=== PATIENT | male | born 1935 | race Caucasian/White ===

== ENCOUNTER 2017-06-01 15:31 | Inpatient (IN) | payer MEDICARE, OTHER ==
[2017-06-01 21:02] VITALS: BMI 23.8
--- NOTE | 2017-06-01 21:43 | CP.PCM.HP ---
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 Mostly obtained from chart. HPI: This is an 81 y/o male with MHx significant for HTN, HLD, and recent CVA with resulting aphasia and R sided weakness who comes in for rehab from [facility] [place]. Patient does not appear to indicate any acute discomfort at this time. Patient info packet did not contain any imaging information. ROS: unable to perform due to aphasia MHx: HTN, HLD, CVA SHx: unable to obtain Allergies: NKDA Medications: As per med rec Family Hx: unable to obtain Social Hx: unable to obtain at this time Surrogate dec mkr: pending Present on Admission - Present on Admission Any Indicators Present on Admission: No Meds Allergies/Adverse Reactions: Allergies Allergy/AdvReac Type Severity Reaction Status Date / Time No Known Allergies Allergy Verified 06/01/17 21:02 Physical Exam - Constitutional Appears: No Acute Distress - Head Exam Head Exam: ATRAUMATIC, NORMOCEPHALIC - Eye Exam Eye Exam: EOMI, PERRL - ENT Exam ENT Exam: Mucous Membranes Moist - Neck Exam Neck exam: Positive for: Full Rom - Respiratory Exam Respiratory Exam: Clear to Auscultation Bilateral, NORMAL BREATHING PATTERN - Cardiovascular Exam Cardiovascular Exam: REGULAR RHYTHM, +S1, +S2 - GI/Abdominal Exam GI & Abdominal Exam: Normal Bowel Sounds, Soft - Extremities Exam Additional comments: Patient with 0/5 strength currently in RUE and RLE - Neurological Exam Additional comments: awake, alert, not able to answer questions or comply with exam; R sided weakness as above - Psychiatric Exam Psychiatric exam: Normal Affect - Skin Skin Exam: Petechiae, Warm Assessment & Plan (1) Status post CVA Assessment and Plan: 81 y/o male with HTN, HLD, and s/p L sided CVA here for rehab. 1) CVA/HTN/HLD -Contine ASA, Plavix, statin -Cont BP control -PT/OT; rehab consult -Neuro consult (Patel) 2) DVT PPx -- SQ Lovenox Status: Acute (2) HTN (hypertension) Status: Acute (3) HLD (hyperlipidemia) Status: Acute (4) DVT prophylaxis Status: Acute
[2017-06-02 06:49] LABS: MEAN CELL VOLUME 92.1 fl (80.0-94.0); MEAN CORPUSCULAR HEMOGLOBIN 31.5 pg (27.0-31.0); MEAN CORPUSCULAR HGB CONC 34.2 g/dL (33.0-37.0); RED CELL DISTRIBUTION WIDTH 13.2 % (11.5-14.5)
[2017-06-02 07:00] LABS: BLOOD UREA NITROGEN 33 mg/dl (9-20); CALCIUM 9.1 mg/dL (8.4-10.2); CARBON DIOXIDE 20 mmol/L (22-30); CHLORIDE 107 mmol/L (98-107); GFR AFRICAN-AMERICAN > 60; GLUCOSE,RANDOM 103 mg/dL (75-110); SODIUM 141 mmol/l (132-148)
[2017-06-02 09:53] LABS: RBC URINE 3 /hpf (0-3); URINE BILIRUBIN NEGATIVE (NEGATIVE); URINE BLOOD NEGATIVE (NEGATIVE); URINE COLOR YELLOW (YELLOW); URINE GLUCOSE (UA) NEG (Normal); URINE KETONE 20 mg/dL (NEGATIVE); URINE LEUKOCYTE ESTERASE NEG Leu/uL (Negative); URINE PROTEIN 30 mg/dL (NEGATIVE); URINE UROBILINOGEN 0.2-1.0 mg/dL (0.2-1.0); WBC URINE 1 /hpf (0-5)
--- NOTE | 2017-06-02 12:05 | CP.PCM.PN ---
Subjective - Date & Time of Evaluation Date of Evaluation: 06/02/17 Time of Evaluation: 12:04 - Subjective Subjective: left CVA right HP Objective - Vital Signs/Intake and Output Vital Signs (last 24 hours): Temp Pulse Resp BP Pulse Ox 98.3 F 90 19 146/79 97 06/02/17 08:39 06/02/17 08:39 06/02/17 08:39 06/02/17 08:39 06/02/17 08:39 - Medications Medications: Current Medications Amlodipine Besylate (Norvasc) 5 mg PO DAILY [facility] Last Admin: 06/02/17 08:36 Dose: 5 mg Aspirin (Aspirin) 325 mg PO DAILY [facility] Last Admin: 06/02/17 08:39 Dose: 325 mg Atorvastatin Calcium (Lipitor) 80 mg PO DAILY [facility] Clopidogrel Bisulfate (Plavix) 75 mg PO DAILY [facility] Last Admin: 06/02/17 08:36 Dose: 75 mg Docusate Sodium (Colace) 100 mg PO BID [facility] Last Admin: 06/02/17 08:37 Dose: 100 mg Donepezil HCl (Aricept) 5 mg PO HS [facility] Last Admin: 06/01/17 23:01 Dose: 5 mg Enoxaparin Sodium (Lovenox) 40 mg SC DAILY [facility] PRN Reason: Protocol Sennosides (Senokot Tab) 8.6 mg PO [facility] - Labs Labs: 06/02/17 05:45 06/02/17 05:45 Physiatry Overall Plan of Care - Overall Plan of Care Estimated Length of Stay in Weeks: 3 Rehab Impairment: Mobility, Gait, Cognition, Speech, Balance, Coordination Etiologic Diagnosis: Cerebrovascular Accident Rehab/Medical Prognosis: Guarded - Anticipated Interventions Physical Therapy:: Yes Occupational Therapy:: Yes Speech Therapy:: Yes Recreational Therapy:: Yes - Therapy Goals Bed Mobility: Minimal Assistance Ambulation: Minimal Assistance Functional Positional Changes:: Minimal Assistance - Discharge Plan Discharge Destination: Subacute
--- NOTE | 2017-06-02 12:07 | CP.PCM.CON ---
History of Present Illness - History of Present Illness History of Present Illness: Dr Gay Coverage for Dr Cee PMR consultation on Lowell Suazo, born 1935, who has been admitted to [facility] for acute inpatient rehabilitation following a left CVA with right HP and aphasia (global). Review of Systems - Review of Systems Systems not reviewed;Unavailable: Other (aphasia) Past Patient History - Past Social History Smoking Status: Never Smoked - CARDIAC Hx Hypertension: Yes - NEUROLOGICAL HX Cerebrovascular Accident: Yes - HEENT Other/Comment: patient wears eyeglasses. - HEMATOLOGICAL/ONCOLOGICAL Hx AIDS: No Hx Blood Transfusions: No Hx Human Immunodeficiency Virus (HIV): No - MUSCULOSKELETAL/RHEUMATOLOGICAL Hx Falls: No Hx Unsteady Gait: Yes - GASTROINTESTINAL Hx Constipation: Yes - GENITOURINARY/GYNECOLOGICAL Hx Incontinence: Yes - PSYCHIATRIC Hx Substance Use: No - ANESTHESIA Hx Anesthesia: No Hx Anesthesia Reactions: No Hx Malignant Hyperthermia: No Has any member of the family had a problem w/ anesthesia?: No Meds Allergies/Adverse Reactions: Allergies Allergy/AdvReac Type Severity Reaction Status Date / Time No Known Allergies Allergy Verified 06/01/17 21:02 - Medications Medications: Current Medications Amlodipine Besylate (Norvasc) 5 mg PO DAILY [facility] Last Admin: 06/02/17 08:36 Dose: 5 mg Aspirin (Aspirin) 325 mg PO DAILY [facility] Last Admin: 06/02/17 08:39 Dose: 325 mg Atorvastatin Calcium (Lipitor) 80 mg PO DAILY [facility] Clopidogrel Bisulfate (Plavix) 75 mg PO DAILY [facility] Last Admin: 06/02/17 08:36 Dose: 75 mg Docusate Sodium (Colace) 100 mg PO BID [facility] Last Admin: 06/02/17 08:37 Dose: 100 mg Donepezil HCl (Aricept) 5 mg PO HS [facility] Last Admin: 06/01/17 23:01 Dose: 5 mg Enoxaparin Sodium (Lovenox) 40 mg SC DAILY [facility] PRN Reason: Protocol Sennosides (Senokot Tab) 8.6 mg PO [facility] Physical Exam - Constitutional Appears: Non-toxic - Head Exam Head Exam: ATRAUMATIC, NORMAL INSPECTION, NORMOCEPHALIC - Eye Exam Eye Exam: EOMI - ENT Exam ENT Exam: Mucous Membranes Moist - Respiratory Exam Respiratory Exam: NORMAL BREATHING PATTERN - Cardiovascular Exam Cardiovascular Exam: REGULAR RHYTHM (2/6 KERWIN) - GI/Abdominal Exam GI & Abdominal Exam: absent: Distended - Extremities Exam Extremities exam: Negative for: calf tenderness, joint swelling - Neurological Exam Neurological exam: Alert (right facial droop) - Psychiatric Exam Psychiatric exam: Normal Affect - Skin Skin Exam: Warm Results - Vital Signs Recent Vital Signs: Last Vital Signs Temp 98.3 F 06/02/17 08:39 Pulse 90 06/02/17 08:39 Resp 19 06/02/17 08:39 BP 146/79 06/02/17 08:39 Pulse Ox 97 06/02/17 08:39 - Labs Result Diagrams: 06/02/17 05:45 06/02/17 05:45 Labs: Laboratory Results - last 24 hr 06/02/17 06/02/17 06/02/17 05:45 05:45 09:10 WBC 8.0 RBC 4.66 Hgb 14.7 Hct 43.0 MCV 92.1 MCH 31.5 H MCHC 34.2 RDW 13.2 Plt Count 251 Sodium 141 Potassium 4.0 Chloride 107 Carbon Dioxide 20 L Anion Gap 18 BUN 33 H Creatinine 0.9 Est GFR ( Amer) > 60 Est GFR (Non-Af Amer) > 60 Random Glucose 103 Calcium 9.1 Urine Color Yellow Urine Clarity Slighty-cloudy Urine pH 5.0 Ur Specific [place] 1.027 Urine Protein 30 Urine Glucose (UA) Neg Urine Ketones 20 Urine Blood Negative Urine Nitrate Negative Urine Bilirubin Negative Urine Urobilinogen 0.2-1.0 Ur Leukocyte Esterase Neg Urine RBC (Auto) 3 Urine Microscopic WBC 1 Ur Squamous Epith Cells < 1 Assessment & Plan - Assessment and Plan (Free Text) Assessment: PT/OT to continue to help increase functional independence Team conference for d/c planning Pain: controlled Vascular: no evidence of DVT GI: No evidence of constipation or diarrhea Patient is an excellent acute rehabilitation candidate and will have focused speech, PT, OT and recreational therapy to help facilitate a safe and appropriate d/c plan Has 2/5 proximal right UE strength and right LE was not easily tested with MMT, tight hamstring, not clear on motor ability at this time. Left UE/LE WNL Impairment code 01.2
[2017-06-02] MEDS: Enoxaparin 40 mg Syringe SC SCH (13:58)
[2017-06-03] MEDS: Enoxaparin 40 mg Syringe SC SCH (09:03)
[2017-06-03] MEDS: Pantoprazole 40 mg EC Tab PO SCH (09:04)
--- NOTE | 2017-06-04 06:00 | CON ---
DATE: 06/03/2017 NEUROLOGY CONSULTATION REASON FOR CONSULTATION: Stroke. HISTORY OF PRESENT ILLNESS: The patient is an 81-year-old male who is admitted into rehab service after he was diagnosed with cerebrovascular accident with aphasia and right-sided weakness. The patient was admitted in [facility]; however, he was out of time window for tPA administration. The patient had full workup done, which was negative. The patient was diagnosed to have a cryptogenic stroke. The patient had insertable loop recorder procedure done. The patient denies any complaints. REVIEW OF SYSTEMS: There is no cough, no sputum production, no abdominal pain, no diarrhea, no dysuria and no fever. PAST MEDICAL HISTORY: Includes hypertension, cerebrovascular accident and hypercholesterolemia. MEDICATIONS: Included Aricept 5 mg, aspirin, Colace, , Lipitor 80 mg, Lovenox, Norvasc, Plavix, Protonix and Senokot. ALLERGIES: NO KNOWN DRUG ALLERGIES. SOCIAL HISTORY: The patient is a nonsmoker, nonalcoholic, and does not use any illicit drugs. FAMILY HISTORY: Reviewed and noncontributory to the patient. PHYSICAL EXAMINATION: GENERAL: The patient is an elderly male, lying on the bed, in no acute distress. VITAL SIGNS: His blood pressure is 153/74, heart rate is 72 per minute, breathing at the rate of 16 per minute, temperature 98.0 degrees Fahrenheit. HEENT: Head is normocephalic and atraumatic. NECK: Supple. There are no carotid bruits. LUNGS: Clear. CARDIOVASCULAR: S1 and S2 audible. No murmurs. ABDOMEN: Soft and nontender. Bowel sounds present. NEUROLOGIC: Mental status: The patient is awake and alert, he looks at the examiner, he follows some simple commands. He has mixed aphasia. Cranial nerve examination: Pupils are 3 mm bilaterally, reactive to light. Visual fallon are decreased on the right side. Extraocular movements are intact. There is decreased nasolabial fold on the right side. Tongue is midline. Motor examination: Tone is decreased on the right side. Power on the left side is 5/5, on the right side in the upper extremity is 3/5, and the right lower extremity is 4/5. Reflexes are 1+ and symmetrical. downgoing bilaterally. Gait is deferred at the moment. LABORATORY DATA: Reviewed, shows WBC 8.0, hemoglobin 14.7, hematocrit of 43.0 and platelets of 251. Sodium is 141, potassium 4.0, chloride 107, carbon dioxide 20, BUN of 33, creatinine of 0.9 and glucose of 103. IMPRESSION: Cerebrovascular accident with residual right hemiparesis and aphasia. Status post insertable loop recorder procedure done. RECOMMENDATIONS: 1. The patient is to be continued on aspirin. 2. The patient also will be continued on Lipitor. 3. The patient also will be continued on Plavix. 4. The patient is to be continued on Aricept, which will help his aphasic symptoms. 5. The patient will have physical therapy and speech therapy. 6. Please continue supportive care and other treatment. Thank you for the opportunity to participate in the care of this patient. Anjum Sweeney MD
[2017-06-04] MEDS: Enoxaparin 40 mg Syringe SC SCH (08:05)
[2017-06-04] MEDS: Pantoprazole 40 mg EC Tab PO SCH (08:06)
--- NOTE | 2017-06-04 10:11 | CP.PCM.PN ---
Subjective - Date & Time of Evaluation Date of Evaluation: 06/04/17 Time of Evaluation: 10:00 - Subjective Subjective: Patient seen and examined by myself in acute rehabilitation. He is aphasic and unable to give a history. Rehabiliation staff report that he has been able to ambulate well and walked down the truong with assistance. Overnight, he had to be straight catheterized twice, last time with output of 448 ml. He has had some difficulty eating over the weekend; speech therapy evaluation with swallow eval today Objective - Vital Signs/Intake and Output Vital Signs (last 24 hours): Temp Pulse Resp BP Pulse Ox 96.4 F L 65 20 128/74 98 06/04/17 07:48 06/04/17 08:06 06/04/17 07:48 06/04/17 08:06 06/04/17 07:48 - Medications Medications: Current Medications Amlodipine Besylate (Norvasc) 5 mg PO DAILY [facility] Last Admin: 06/04/17 08:06 Dose: 5 mg Aspirin (Aspirin) 325 mg PO DAILY [facility] Last Admin: 06/04/17 08:07 Dose: 325 mg Atorvastatin Calcium (Lipitor) 80 mg PO DAILY [facility] Last Admin: 06/04/17 08:05 Dose: 80 mg Clopidogrel Bisulfate (Plavix) 75 mg PO DAILY [facility] Last Admin: 06/04/17 08:06 Dose: 75 mg Docusate Sodium (Colace) 100 mg PO BID [facility] Last Admin: 06/04/17 08:05 Dose: 100 mg Donepezil HCl (Aricept) 5 mg PO HS [facility] Last Admin: 06/03/17 21:48 Dose: 5 mg Enoxaparin Sodium (Lovenox) 40 mg SC DAILY [facility] PRN Reason: Protocol Last Admin: 06/04/17 08:05 Dose: 40 mg Lactulose (Enulose) 20 gm PO DAILY PRN PRN Reason: Constipation Last Admin: 06/03/17 09:14 Dose: 20 gm Pantoprazole Sodium (Protonix Ec Tab) 40 mg PO DAILY [facility] Last Admin: 06/04/17 08:06 Dose: 40 mg Sennosides (Senokot Tab) 8.6 mg PO HS [facility] Last Admin: 06/03/17 21:48 Dose: 8.6 mg - Labs Labs: 06/02/17 05:45 06/02/17 05:45 - Head Exam Head Exam: ATRAUMATIC, NORMAL INSPECTION, NORMOCEPHALIC - ENT Exam ENT Exam: Mucous Membranes Moist, Normal Exam. absent: Mucous Membranes Dry - Neck Exam Neck Exam: Full ROM, Normal Inspection. absent: Lymphadenopathy - Respiratory Exam Respiratory Exam: Clear to Ausculation Bilateral, NORMAL BREATHING PATTERN - Cardiovascular Exam Cardiovascular Exam: REGULAR RHYTHM, +S1, +S2. absent: Murmur - GI/Abdominal Exam GI & Abdominal Exam: Soft, Normal Bowel Sounds. absent: Tenderness - Extremities Exam Extremities Exam: Full ROM, Normal Capillary Refill, Normal Inspection. absent : Joint Swelling, Pedal Edema - Back Exam Back Exam: NORMAL INSPECTION - Neurological Exam Neurological Exam: Alert, Awake, CN II-XII Intact Neuro motor strength exam: Left Upper Extremity: 5, Right Upper Extremity: 0, Left Lower Extremity: 5, Right Lower Extremity: 5 - Skin Skin Exam: Dry, Intact, Normal Color, Warm Assessment and Plan (1) Status post CVA Status: Acute (2) HTN (hypertension) Status: Chronic (3) HLD (hyperlipidemia) Status: Chronic (4) Urinary retention with incomplete bladder emptying Status: Acute (5) DVT prophylaxis Status: Acute - Assessment and Plan (Free Text) Assessment: Assessment & Plan (1) Status post CVA Assessment and Plan: 81 y/o male with HTN, HLD, and s/p L sided CVA here for rehab from [facility]. -Contine ASA, Plavix, statin -Cont BP control -PT/OT; rehab consult -Neuro consult (Patel) Status: Acute (2) HTN (hypertension) Status: Acute - Continue Norvasc 5 mg po daily (3) HLD (hyperlipidemia) Status: Acute - Continue Lipitor 80 mg po daily (4) DVT prophylaxis Status: Acute - Continue Lovenox SQ (5) Constipation - Continue Colace 100 mg po BID - Continue Sennosides (6) Dysphagia - Speech therapy consultation - Swallow evaluation today by speech therapist ordered (7) Urinary retention overnight - Repeat bladder scan; straight cath if necessary - Urology consultation if no improvement
[2017-06-04] MEDS: Sodium Chloride 0.9% 500 ML IV SCH ×2 (15:26→21:10)
[2017-06-05] MEDS ORDERED: Sodium Chloride 0.9% 500 ML IV SCH (01:40)
[2017-06-05] MEDS: Sodium Chloride 0.9% 500 ML IV SCH (01:52)
[2017-06-05 06:53] LABS: HEMATOCRIT 38.5 % (35.0-51.0); MEAN CELL VOLUME 92.5 fl (80.0-94.0); MEAN CORPUSCULAR HEMOGLOBIN 31.8 pg (27.0-31.0); MEAN CORPUSCULAR HGB CONC 34.4 g/dL (33.0-37.0); RED CELL DISTRIBUTION WIDTH 13.3 % (11.5-14.5); WHITE BLOOD COUNT 10.3 K/uL (4.8-10.8)
[2017-06-05] MEDS: Enoxaparin 40 mg Syringe SC SCH (09:03)
[2017-06-05] MEDS: Pantoprazole 40 mg EC Tab PO SCH (09:04)
--- NOTE | 2017-06-05 11:56 | CP.PCM.PN ---
Subjective - Date & Time of Evaluation Date of Evaluation: 06/05/17 Time of Evaluation: 10:00 - Subjective Subjective: no acute complaints [id number] in bed Objective - Vital Signs/Intake and Output Vital Signs (last 24 hours): Temp Pulse Resp BP Pulse Ox 97.8 F 78 21 124/76 97 06/05/17 08:25 06/05/17 09:03 06/05/17 08:25 06/05/17 09:03 06/05/17 08:39 Intake and Output: 06/05/17 06/05/17 06:59 18:59 Intake Total 800 150 Output Total 550 Balance 250 150 - Medications Medications: Current Medications Amlodipine Besylate (Norvasc) 5 mg PO DAILY [facility] Last Admin: 06/05/17 09:03 Dose: 5 mg Aspirin (Aspirin) 325 mg PO DAILY [facility] Last Admin: 06/05/17 09:05 Dose: 325 mg Atorvastatin Calcium (Lipitor) 80 mg PO DAILY [facility] Last Admin: 06/05/17 09:03 Dose: 80 mg Clopidogrel Bisulfate (Plavix) 75 mg PO DAILY [facility] Last Admin: 06/05/17 09:03 Dose: 75 mg Docusate Sodium (Colace) 100 mg PO BID [facility] Last Admin: 06/05/17 09:02 Dose: 100 mg Donepezil HCl (Aricept) 5 mg PO HS [facility] Last Admin: 06/04/17 21:09 Dose: 5 mg Enoxaparin Sodium (Lovenox) 40 mg SC DAILY [facility] PRN Reason: Protocol Last Admin: 06/05/17 09:03 Dose: 40 mg Lactulose (Enulose) 20 gm PO DAILY PRN PRN Reason: Constipation Last Admin: 06/03/17 09:14 Dose: 20 gm Pantoprazole Sodium (Protonix Ec Tab) 40 mg PO DAILY [facility] Last Admin: 06/05/17 09:04 Dose: 40 mg Sennosides (Senokot Tab) 8.6 mg PO HS [facility] Last Admin: 06/04/17 21:15 Dose: Not Given - Labs Labs: 06/05/17 06:30 06/02/17 05:45 - Head Exam Head Exam: ATRAUMATIC, NORMAL INSPECTION, NORMOCEPHALIC - Eye Exam Eye Exam: EOMI, Normal appearance, PERRL Pupil Exam: NORMAL ACCOMODATION - ENT Exam ENT Exam: Mucous Membranes Moist, Normal Exam - Neck Exam Neck Exam: Normal Inspection - Respiratory Exam Respiratory Exam: NORMAL BREATHING PATTERN - Cardiovascular Exam Cardiovascular Exam: REGULAR RHYTHM - GI/Abdominal Exam GI & Abdominal Exam: Normal Bowel Sounds - Rectal Exam Rectal Exam: NORMAL INSPECTION - Exam External exam: NORMAL EXTERNAL EXAM - Extremities Exam Extremities Exam: Normal Capillary Refill, Normal Inspection - Back Exam Back Exam: NORMAL INSPECTION - Neurological Exam Neurological Exam: Alert, Awake Neuro motor strength exam: Left Upper Extremity: 3, Right Upper Extremity: 2/1, Left Lower Extremity: 3, Right Lower Extremity: 2/1 - Psychiatric Exam Psychiatric exam: Normal Affect, Normal Mood - Skin Skin Exam: Dry, Intact Assessment and Plan (1) DVT prophylaxis Status: Acute (2) Status post CVA Assessment & Plan: plan for physcal, occupational, rec therapy team conference for tomorrow Status: Acute (3) Urinary retention with incomplete bladder emptying Status: Acute (4) HLD (hyperlipidemia) Status: Chronic (5) HTN (hypertension) Status: Chronic
[2017-06-06] MEDS: Enoxaparin 40 mg Syringe SC SCH (08:05)
[2017-06-06] MEDS: Pantoprazole 40 mg EC Tab PO SCH (08:07)
--- NOTE | 2017-06-06 12:16 | PSY.TMCNF ---
Nursing - Vital Signs Vital Signs (Last 8 hours): Vital Signs 06/06/17 06/06/17 06/06/17 08:04 08:06 09:22 Temperature 97.1 F L Pulse Rate 76 76 84 Respiratory 19 Rate Blood Pressure 148/77 148/77 O2 Sat by Pulse 96 93 L Oximetry 06/06/17 11:57 Temperature 97.1 F L Pulse Rate 76 Respiratory 19 Rate Blood Pressure 148/77 O2 Sat by Pulse Oximetry Pain: 0 - Precautions: Precautions: Fall Prevention, Aspiration - Medications/Other Issues Comment: Pt is at high nutritional risk. Goals: 1: Tolerate diet and consume > 75% of meals- partially met, continue. 2: Maintain wt within 2-3 lbs. of current wt- unknown if met, continue. Follow up assessment due by 06/11/17. - Consults Comment: Dr Heredia Neuro - Skin Incision Site: left chest Dressing Status: Clean, Dry, Intact Incision: Healing Well Incision Line Treatment: post loop recorder placement- with band aid - Wound Left Chest Wound Type: Incision Wound Edges: Closed Tunneling: No Undermining: No Wound Drainage Amount: None Wound General Appearance: Asymptomatic Wound Dressing Status: Dry & Intact Dressing Changed: No Wound Packing Type: Not applicable Wound Primary Dressing Type: Gauze Pads Wound Secondary Dressing Type: Gauze Pads - Toileting Toileting: Dependent - Bladder Management Bladder Pattern: Retention Voiding Method: Indwelling Catheter Bladder Management: Dependent Frequency of Accidents: Hx of retention. Bladder Scanning daily results consistently above 300. To discuss with MD regarding consult - Bowel Management Bowel Pattern: Normal Comment: Continent. Can express need to move his bowels Bowel Management: Dependent - Transfers Transfers: Minimal Assistance - ADL's ADL's: Moderate Assistance - Pain Management Comments: no c/o pain - Patient/Family Teaching Comments: safety: Fall and Aspiration Precautions. Medication Management. Stroke Education - Goals/Time Frame Comments: assess weekly - Provider Provider: Adrianne Fulton RN Physical Therapy - Bed Mobility Bed Mobility: Verbal Cues, Minimal Assistance - Transfers Wheelchair to Mat: Verbal Cues, Contact Guard, Minimal Assistance Sit to Stand: Verbal Cues, Contact Guard - Ambulation Level of Assistance: Minimal Assistance Assistive Devices: Narrow base quad cane - Stair Negotiation Stairs: Level of Assistance: Minimal Assistance, Maximum Assistance Handrails: Left Stairs: Assistive Devices: Left Handrail Comment: min A to ascend, max A to descend - Standing Balance Static Stand: Contact Guard Assist Dynamic Stand: Minimal Assistance - Pain Comment: does not report pain - Insight/Carryover Insight/Carryover: Fair - Patient/Family Education Comment: Role of OT and rehab, Stroke recovery, safety with ADLs and ADL transfers, compensatory strategies. pt requires reinforcement - Assessment/Plan Assessment: Patient demonstrates decreased standing/sitting balance/tolerance, endurance, UE strength and ROM, vision,arpaxia cognition, language, impacting increased independence with ADLs and functional activities. Patient is motivated for therapy indicating potential for increased independence. Patient will benefit from skilled OT services 5-6x/week to address above deficits to increase independence for discharge. - Goals Timeframe: 3 weeks Goals: LE dressing MIN A. UE dressing MIN A. toileting MAX A. toilet txfer MIN A - Provider Therapist: Kavita Champion PT DPT License Number: [id number] Occupational Therapy - Arousal/Attention/Orientation Level of Consciousness: Awake, Lethargic Patient Orientation: Person - ADL/IADL Self Feeding: Minimal Assistance Grooming: Maximum Assistance Dressing-Upper Extremity: Minimal Assistance Dressing-Lower Extremity: Maximum Assistance Comment: total A for toileting - Sitting Balance Static Sitting: Supervision Dynamic Sitting: Minimal Assistance - Transfers Wheelchair to Bed Transfers: Minimal Assistance Toilet Transfers: Moderate Assistance Comment: Tub and shower transfers not assessed during the initial evaluation. Will assess in future occupational therapy session as appropriate. - Wheelchair Management Level of Assistance: Maximum Assistance Distance (ft.): 10 - Upper Extremity Status Right Upper Extremity Comment: Patient does not follow commands for MMT, however was able to spontaneously move R shoulder, elbow, forearm and wrist against gravity. AROM WFL in all joints except no active movement in R hand, however passive ROM WFL Left Upper Extremity Comment: ROM WFL Unable to follow commands for MMT. - Pain Comment: does not report pain - Insight/Carryover Insight/Carryover: Fair - Patient/Family Education Comment: Role of OT and rehab, Stroke recovery, safety with ADLs and ADL transfers, compensatory strategies. pt requires reinforcement - Assessment/Plan Assessment: Patient demonstrates decreased standing/sitting balance/tolerance, endurance, UE strength and ROM, vision,arpaxia cognition, language, impacting increased independence with ADLs and functional activities. Patient is motivated for therapy indicating potential for increased independence. Patient will benefit from skilled OT services 5-6x/week to address above deficits to increase independence for discharge. - Goals Timeframe: 3 weeks Goals: LE dressing MIN A. UE dressing MIN A. toileting MAX A. toilet txfer MIN A - Provider Therapist: Dona Escoto License Number: [id number] Speech Therapy - Consult Information Patient on Program: Yes Medical Diagnosis: CVA - Assessment Expressive Language Impairment: Severe Receptive Language Impairment: Severe Speech/Articulation Impairment: Severe Dysphagia/Swallowing Impairment: Moderate - Plan Assessment: Patient demonstrates decreased standing/sitting balance/tolerance, endurance, UE strength and ROM, vision,arpaxia cognition, language, impacting increased independence with ADLs and functional activities. Patient is motivated for therapy indicating potential for increased independence. Patient will benefit from skilled OT services 5-6x/week to address above deficits to increase independence for discharge. - Provider Therapist: Alie Vincent License Number: [id number] Recreational Therapy - Assessment Assessment/Plan: Patient demonstrates decreased standing/sitting balance/ tolerance, endurance, UE strength and ROM, vision,arpaxia cognition, language, impacting increased independence with ADLs and functional activities. Patient is motivated for therapy indicating potential for increased independence. Patient will benefit from skilled OT services 5-6x/week to address above deficits to increase independence for discharge. Nutrition - Current Diet Current Diet/ Supplement/ Feedings: Pureed, heart healthy diet with Ensure Plus once daily - Appetite Percent Meal Consumed: 50-74% - Comments Comments: safety: Fall and Aspiration Precautions. Medication Management. Stroke Education - Assessment/Goals/Time Frame Assessment/Goals/Time Frame: Pt is at high nutritional risk. Goals: 1: Tolerate diet and consume >75% of meals- partially met, continue. 2: Maintain wt within 2-3 lbs. of current wt- unknown if met, continue. Follow up assessment due by 06/11/17. - Provider Provider: Leeanna Billingsley MS, RD Case Management - Psychosocial Assessment Support Systems: Resides with marybel Suazo [phone]/ granddaughter [phone] Psychological Interventions/Needs: Pt is alert but with expressive aphasia Discharge Concerns: Pt will likely require 24hr supervision upon discharge Patient/Family Meeting: CM met with pt and daughter Yessica (given pt's aphasia) present along with rehab team Intervention/Goal/Outcome:: 1. Plan: tentative discharge date to be determined; For discharge home with skilled homecare 2. DME needs to be determined 3. Continued emotional support 4. Continued stay review LAD 06/06/17 5. Caregiver training to be initated with daughter - Discharge Plan Discharge Plan: Home with significant other/family Home Services: [facility] - Provider Provider: VIRGINIE Glasgow, COSMETICS COUNTER MANAGER License Number: [id number] Rehabilitation Plan - Treatment Plan Treatment Plan: Physical Therapy, Occupational Therapy, Speech, Dietary, Patient /Family Education - Recommendation Recommendation: Physical Therapy, Occupational Therapy, Speech, Dietary, Patient /Family Education - Discharge Plan Discharge to: Home (DC 27)
--- NOTE | 2017-06-06 13:12 | CP.PCM.PN ---
Subjective - Date & Time of Evaluation Date of Evaluation: 06/06/17 Time of Evaluation: 11:30 - Subjective Subjective: Patient seen and examined . Sitting in chair in NAD. With expressive aphasia, right side weakness Hemodynamically stable,afebrile. No acute issues overnight. Participating with PT. Objective - Vital Signs/Intake and Output Vital Signs (last 24 hours): Temp Pulse Resp BP Pulse Ox 97.1 F L 76 19 148/77 93 L 06/06/17 11:57 06/06/17 11:57 06/06/17 11:57 06/06/17 11:57 06/06/17 09:22 Intake and Output: 06/06/17 06/06/17 06:59 18:59 Intake Total 200 Output Total 400 Balance -200 - Medications Medications: Current Medications Amlodipine Besylate (Norvasc) 5 mg PO DAILY [facility] Last Admin: 06/06/17 08:06 Dose: 5 mg Aspirin (Aspirin) 325 mg PO DAILY [facility] Last Admin: 06/06/17 08:05 Dose: 325 mg Atorvastatin Calcium (Lipitor) 80 mg PO DAILY [facility] Last Admin: 06/06/17 08:05 Dose: 80 mg Clopidogrel Bisulfate (Plavix) 75 mg PO DAILY [facility] Last Admin: 06/06/17 08:07 Dose: 75 mg Docusate Sodium (Colace) 100 mg PO BID [facility] Last Admin: 06/06/17 08:05 Dose: 100 mg Donepezil HCl (Aricept) 5 mg PO HS [facility] Last Admin: 06/05/17 21:14 Dose: 5 mg Enoxaparin Sodium (Lovenox) 40 mg SC DAILY [facility] PRN Reason: Protocol Last Admin: 06/06/17 08:05 Dose: 40 mg Lactulose (Enulose) 20 gm PO DAILY PRN PRN Reason: Constipation Last Admin: 06/06/17 08:58 Dose: 20 gm Pantoprazole Sodium (Protonix Ec Tab) 40 mg PO DAILY [facility] Last Admin: 06/06/17 08:07 Dose: 40 mg Sennosides (Senokot Tab) 8.6 mg PO HS [facility] Last Admin: 06/05/17 21:14 Dose: 8.6 mg - Labs Labs: 06/05/17 06:30 06/02/17 05:45 - Constitutional Appears: Non-toxic, No Acute Distress - Head Exam Head Exam: ATRAUMATIC, NORMOCEPHALIC - Eye Exam Eye Exam: EOMI, Normal appearance, PERRL Pupil Exam: NORMAL ACCOMODATION - ENT Exam ENT Exam: Mucous Membranes Moist, Normal Exam - Neck Exam Neck Exam: Full ROM, Normal Inspection - Respiratory Exam Respiratory Exam: Clear to Ausculation Bilateral, NORMAL BREATHING PATTERN. absent: Rales, Rhonchi, Wheezes - Cardiovascular Exam Cardiovascular Exam: REGULAR RHYTHM, RRR, +S1, +S2. absent: JVD - GI/Abdominal Exam GI & Abdominal Exam: Soft, Normal Bowel Sounds. absent: Distended, Guarding, Tenderness, Rebound - Rectal Exam Rectal Exam: Deferred - Extremities Exam Extremities Exam: Full ROM, Normal Capillary Refill, Normal Inspection. absent : Calf Tenderness, Pedal Edema, Tenderness - Back Exam Back Exam: NORMAL INSPECTION - Neurological Exam Neurological Exam: Alert, Awake Additional comments: right facial droop dysarthria and aphasia right side weakness - Psychiatric Exam Psychiatric exam: Normal Affect - Skin Skin Exam: Dry, Normal Color, Warm Assessment and Plan - Assessment and Plan (Free Text) Assessment: 81 y/o male with PMH for HTN, HLD, and recent CVA resulting in aphasia and R sided weakness admitted to acute rehab from [facility] [place]. Patient does not appear to indicate any acute discomfort at this time. 1. Ischemic CVA participating with PT Contine ASA, Plavix, statin Cont BP control Neuro consult (Patel) pn Puree diet with thin liquids Continue PT/ OT / speech therapy 2. HTN (hypertension) controlled Continue Norvasc 5 mg po daily 3. HLD (hyperlipidemia) Continue Lipitor 80 mg po daily 4. DVT prophylaxis Continue Lovenox SQ 5. Constipation Continue Colace 100 mg po BID Continue Sennosides 6. Dysphagia Speech therapy consultation puree diet with thin liquid 7. Urinary retention overnight start bladder training start Flomax
--- NOTE | 2017-06-06 13:35 | CP.PCM.PN ---
Subjective - Date & Time of Evaluation Date of Evaluation: 06/06/17 Time of Evaluation: 11:00 - Subjective Subjective: no acute complaints at present Objective - Vital Signs/Intake and Output Vital Signs (last 24 hours): Temp Pulse Resp BP Pulse Ox 97.1 F L 76 19 148/77 93 L 06/06/17 11:57 06/06/17 11:57 06/06/17 11:57 06/06/17 11:57 06/06/17 09:22 Intake and Output: 06/06/17 06/06/17 06:59 18:59 Intake Total 200 Output Total 400 Balance -200 - Medications Medications: Current Medications Amlodipine Besylate (Norvasc) 5 mg PO DAILY [facility] Last Admin: 06/06/17 08:06 Dose: 5 mg Aspirin (Aspirin) 325 mg PO DAILY [facility] Last Admin: 06/06/17 08:05 Dose: 325 mg Atorvastatin Calcium (Lipitor) 80 mg PO DAILY [facility] Last Admin: 06/06/17 08:05 Dose: 80 mg Clopidogrel Bisulfate (Plavix) 75 mg PO DAILY [facility] Last Admin: 06/06/17 08:07 Dose: 75 mg Docusate Sodium (Colace) 100 mg PO BID [facility] Last Admin: 06/06/17 08:05 Dose: 100 mg Donepezil HCl (Aricept) 5 mg PO HS [facility] Last Admin: 06/05/17 21:14 Dose: 5 mg Enoxaparin Sodium (Lovenox) 40 mg SC DAILY [facility] PRN Reason: Protocol Last Admin: 06/06/17 08:05 Dose: 40 mg Lactulose (Enulose) 20 gm PO DAILY PRN PRN Reason: Constipation Last Admin: 06/06/17 08:58 Dose: 20 gm Pantoprazole Sodium (Protonix Ec Tab) 40 mg PO DAILY [facility] Last Admin: 06/06/17 08:07 Dose: 40 mg Sennosides (Senokot Tab) 8.6 mg PO HS [facility] Last Admin: 06/05/17 21:14 Dose: 8.6 mg Tamsulosin HCl (Flomax) 0.4 mg PO DAILY [facility] - Labs Labs: 06/05/17 06:30 06/02/17 05:45 - Head Exam Head Exam: ATRAUMATIC, NORMAL INSPECTION, NORMOCEPHALIC - Eye Exam Eye Exam: EOMI, Normal appearance, PERRL Pupil Exam: NORMAL ACCOMODATION - ENT Exam ENT Exam: Mucous Membranes Moist, Normal Exam - Neck Exam Neck Exam: Full ROM - Respiratory Exam Respiratory Exam: NORMAL BREATHING PATTERN - Cardiovascular Exam Cardiovascular Exam: REGULAR RHYTHM - GI/Abdominal Exam GI & Abdominal Exam: Normal Bowel Sounds - Rectal Exam Rectal Exam: NORMAL INSPECTION - Exam External exam: NORMAL EXTERNAL EXAM - Extremities Exam Extremities Exam: Normal Capillary Refill, Normal Inspection - Back Exam Back Exam: NORMAL INSPECTION - Neurological Exam Neurological Exam: Alert, Awake Neuro motor strength exam: Left Upper Extremity: 3, Right Upper Extremity: 2/1, Left Lower Extremity: 3, Right Lower Extremity: 3 - Psychiatric Exam Psychiatric exam: Normal Affect, Normal Mood - Skin Skin Exam: Intact, Normal Color Assessment and Plan (1) DVT prophylaxis Status: Acute (2) Status post CVA Assessment & Plan: pt, ot and re therapy Vital stim for patient discussed Dc planning with family Status: Acute (3) Urinary retention with incomplete bladder emptying Status: Acute (4) HLD (hyperlipidemia) Status: Chronic (5) HTN (hypertension) Status: Chronic
[2017-06-07] MEDS: Pantoprazole 40 mg EC Tab PO SCH (08:30)
[2017-06-07] MEDS: Enoxaparin 40 mg Syringe SC SCH (08:30)
[2017-06-08 07:38] LABS: HEMATOCRIT 38.4 % (35.0-51.0); MEAN CELL VOLUME 93.2 fl (80.0-94.0); MEAN CORPUSCULAR HEMOGLOBIN 31.5 pg (27.0-31.0); MEAN CORPUSCULAR HGB CONC 33.8 g/dL (33.0-37.0); RED CELL DISTRIBUTION WIDTH 13.3 % (11.5-14.5); WHITE BLOOD COUNT 7.3 K/uL (4.8-10.8)
[2017-06-08] MEDS: Pantoprazole 40 mg EC Tab PO SCH (08:03)
[2017-06-08] MEDS: Enoxaparin 40 mg Syringe SC SCH (08:04)
[2017-06-08 08:06] LABS: BLOOD UREA NITROGEN 27 mg/dl (9-20); CALCIUM 8.6 mg/dL (8.4-10.2); CARBON DIOXIDE 23 mmol/L (22-30); CHLORIDE 107 mmol/L (98-107); GFR AFRICAN-AMERICAN > 60; GLUCOSE,RANDOM 100 mg/dL (75-110); POTASSIUM 3.5 MMOL/L (3.6-5.0); SODIUM 140 mmol/l (132-148)
--- NOTE | 2017-06-08 13:55 | PN ---
NEUROLOGY PROGRESS NOTE DATE: SUBJECTIVE: The patient is sitting on the chair, in no acute distress. PHYSICAL EXAMINATION: VITAL SIGNS: His blood pressure is 120/80, heart rate is 78 per minute, breathing at a rate of 16 per minute, and temperature is 97.7 degrees Fahrenheit. HEENT: Head is normocephalic and atraumatic. NECK: Supple. There are no carotid bruits. LUNGS: Clear. CARDIOVASCULAR: S1 and S2 is audible. No murmurs. ABDOMEN: Soft and nontender. Bowel sounds are present. NEUROLOGIC: Mental status: The patient is awake and alert. He looks at the examiner and he follows occasional commands. He has global aphasia. Cranial nerve examination: Pupils are 3 mm bilaterally reactive to light. Visual fallon are decreased on the right side. Extraocular movements are intact There is decreased nasolabial fold on the right side Tongue is midline. Motor examination: Tone is normal. Power on the left side is 5/5 and on the right is 3/5. Reflexes 1+ and symmetrical. Plantars are downgoing bilaterally. [id number] shows no dysmetria. IMPRESSION: Cerebrovascular accident with right-sided hemiparesis and aphasia. RECOMMENDATIONS: 1. The patient had a cryptogenic stroke and had an insertable loop recorder placed. The patient of the insertable loop recorder is healing very well. 2. The patient to be continued on aspirin and Plavix. 3. The patient also be continued on statin. 4. The patient to have aggressive physical and speech therapy. 5. The patient's blood pressure is better controlled today. 6. Please continue supportive care and other treatment. Thank you for the opportunity to participate in the care of this patient. Anjum Sweeney MD
--- NOTE | 2017-06-08 14:06 | CP.PCM.PN ---
Subjective - Date & Time of Evaluation Date of Evaluation: 06/08/17 Time of Evaluation: 12:00 - Subjective Subjective: no acute complaints at present Objective - Vital Signs/Intake and Output Vital Signs (last 24 hours): Temp Pulse Resp BP Pulse Ox 97.7 F 77 20 120/80 97 06/07/17 20:19 06/08/17 09:29 06/07/17 20:19 06/08/17 08:03 06/08/17 09:29 Intake and Output: 06/08/17 06/08/17 06:59 18:59 Intake Total 200 Output Total 575 Balance -375 - Medications Medications: Current Medications Amlodipine Besylate (Norvasc) 5 mg PO DAILY [facility] Last Admin: 06/08/17 08:03 Dose: 5 mg Aspirin (Aspirin) 325 mg PO DAILY [facility] Last Admin: 06/08/17 08:07 Dose: 325 mg Atorvastatin Calcium (Lipitor) 80 mg PO DAILY [facility] Last Admin: 06/08/17 08:03 Dose: 80 mg Clopidogrel Bisulfate (Plavix) 75 mg PO DAILY [facility] Last Admin: 06/08/17 08:02 Dose: 75 mg Docusate Sodium (Colace) 100 mg PO BID [facility] Last Admin: 06/08/17 08:03 Dose: 100 mg Donepezil HCl (Aricept) 5 mg PO HS [facility] Last Admin: 06/07/17 21:01 Dose: 5 mg Enoxaparin Sodium (Lovenox) 40 mg SC DAILY [facility] PRN Reason: Protocol Last Admin: 06/08/17 08:04 Dose: 40 mg Lactulose (Enulose) 20 gm PO DAILY PRN PRN Reason: Constipation Last Admin: 06/06/17 08:58 Dose: 20 gm Pantoprazole Sodium (Protonix Ec Tab) 40 mg PO DAILY [facility] Last Admin: 06/08/17 08:03 Dose: 40 mg Sennosides (Senokot Tab) 8.6 mg PO HS [facility] Last Admin: 06/07/17 21:01 Dose: 8.6 mg Tamsulosin HCl (Flomax) 0.4 mg PO DAILY [facility] Last Admin: 06/08/17 09:00 Dose: 0.4 mg - Labs Labs: 06/08/17 06:30 06/08/17 06:30 - Head Exam Head Exam: ATRAUMATIC, NORMAL INSPECTION, NORMOCEPHALIC - Eye Exam Eye Exam: EOMI, Normal appearance, PERRL Pupil Exam: NORMAL ACCOMODATION - ENT Exam ENT Exam: Mucous Membranes Moist, Normal Exam - Neck Exam Neck Exam: Normal Inspection - Respiratory Exam Respiratory Exam: NORMAL BREATHING PATTERN - Cardiovascular Exam Cardiovascular Exam: REGULAR RHYTHM - GI/Abdominal Exam GI & Abdominal Exam: Normal Bowel Sounds - Rectal Exam Rectal Exam: NORMAL INSPECTION - Exam External exam: NORMAL EXTERNAL EXAM - Extremities Exam Extremities Exam: Full ROM, Normal Capillary Refill - Back Exam Back Exam: NORMAL INSPECTION - Neurological Exam Neurological Exam: Alert, Awake Neuro motor strength exam: Left Upper Extremity: 3, Right Upper Extremity: 3, Left Lower Extremity: 3, Right Lower Extremity: 3 - Psychiatric Exam Psychiatric exam: Normal Affect, Normal Mood - Skin Skin Exam: Dry Assessment and Plan (1) DVT prophylaxis Status: Acute (2) Status post CVA Assessment & Plan: plan fo rphysical, occupational and rec therapy Status: Acute (3) Urinary retention with incomplete bladder emptying Status: Acute (4) HLD (hyperlipidemia) Status: Chronic (5) HTN (hypertension) Status: Chronic
--- NOTE | 2017-06-08 17:19 | CP.PCM.PN ---
Subjective - Date & Time of Evaluation Date of Evaluation: 06/08/17 Time of Evaluation: 13:30 - Subjective Subjective: Pt seen and examined. Although he remained aphasic, patient responded by shaking his head when asked if he has any problem Objective - Vital Signs/Intake and Output Vital Signs (last 24 hours): Temp Pulse Resp BP Pulse Ox 97.7 F 77 20 120/80 97 06/07/17 20:19 06/08/17 09:29 06/07/17 20:19 06/08/17 08:03 06/08/17 09:29 Intake and Output: 06/08/17 06/08/17 06:59 18:59 Intake Total 200 Output Total 575 Balance -375 - Medications Medications: Current Medications Amlodipine Besylate (Norvasc) 5 mg PO DAILY [facility] Last Admin: 06/08/17 08:03 Dose: 5 mg Aspirin (Aspirin) 325 mg PO DAILY [facility] Last Admin: 06/08/17 08:07 Dose: 325 mg Atorvastatin Calcium (Lipitor) 80 mg PO DAILY [facility] Last Admin: 06/08/17 08:03 Dose: 80 mg Clopidogrel Bisulfate (Plavix) 75 mg PO DAILY [facility] Last Admin: 06/08/17 08:02 Dose: 75 mg Docusate Sodium (Colace) 100 mg PO BID [facility] Last Admin: 06/08/17 08:03 Dose: 100 mg Donepezil HCl (Aricept) 5 mg PO HS [facility] Last Admin: 06/07/17 21:01 Dose: 5 mg Enoxaparin Sodium (Lovenox) 40 mg SC DAILY [facility] PRN Reason: Protocol Last Admin: 06/08/17 08:04 Dose: 40 mg Lactulose (Enulose) 20 gm PO DAILY PRN PRN Reason: Constipation Last Admin: 06/06/17 08:58 Dose: 20 gm Pantoprazole Sodium (Protonix Ec Tab) 40 mg PO DAILY [facility] Last Admin: 06/08/17 08:03 Dose: 40 mg Sennosides (Senokot Tab) 8.6 mg PO HS [facility] Last Admin: 06/07/17 21:01 Dose: 8.6 mg Tamsulosin HCl (Flomax) 0.4 mg PO DAILY [facility] Last Admin: 06/08/17 09:00 Dose: 0.4 mg - Labs Labs: 06/08/17 06:30 06/08/17 06:30 - Constitutional Appears: No Acute Distress - Head Exam Head Exam: ATRAUMATIC - Eye Exam Eye Exam: absent: Scleral icterus - ENT Exam ENT Exam: Mucous Membranes Moist - Neck Exam Neck Exam: absent: Meningismus - Respiratory Exam Respiratory Exam: absent: Rhonchi, Wheezes, Respiratory Distress - Cardiovascular Exam Cardiovascular Exam: REGULAR RHYTHM, +S1, +S2 - GI/Abdominal Exam GI & Abdominal Exam: Soft. absent: Tenderness - Rectal Exam Rectal Exam: Deferred - Neurological Exam Neurological Exam: Alert Additional comments: right facial and right sided weakness - Psychiatric Exam Psychiatric exam: Normal Affect - Skin Skin Exam: Dry, Intact Assessment and Plan - Assessment and Plan (Free Text) Assessment: 81 yo male with history of HTN, HLD, and recent CVA resulting in aphasia and right sided weakness was admitted to acute rehab from [facility] on 06/01/2017 for continuation of PT. 1. Ischemic CVA pt remained stable and improving although remaining aphasic continue ASA, Plavix, statin continue BP control Neuro consult with Dr Sweeney on Puree diet with thin liquids Continue PT/OT/speech therapy 2. HTN (hypertension) BP controlled continue Norvasc 5 mg po daily 3. HLD (hyperlipidemia) Continue Lipitor 80 mg po daily 4. DVT prophylaxis Continue Lovenox 40mg SC daily
[2017-06-09] MEDS: Pantoprazole 40 mg EC Tab PO SCH (08:18)
[2017-06-09] MEDS: Enoxaparin 40 mg Syringe SC SCH (08:20)
[2017-06-10] MEDS: Pantoprazole 40 mg EC Tab PO SCH (08:04)
[2017-06-10] MEDS: Enoxaparin 40 mg Syringe SC SCH (08:05)
[2017-06-11 06:57] LABS: HEMATOCRIT 37.5 % (35.0-51.0); MEAN CELL VOLUME 91.9 fl (80.0-94.0); MEAN CORPUSCULAR HEMOGLOBIN 31.8 pg (27.0-31.0); MEAN CORPUSCULAR HGB CONC 34.6 g/dL (33.0-37.0); RED CELL DISTRIBUTION WIDTH 12.9 % (11.5-14.5); WHITE BLOOD COUNT 8.3 K/uL (4.8-10.8)
[2017-06-11 07:12] LABS: BLOOD UREA NITROGEN 18 mg/dl (9-20); CALCIUM 8.6 mg/dL (8.4-10.2); CARBON DIOXIDE 24 mmol/L (22-30); CHLORIDE 105 mmol/L (98-107); GFR AFRICAN-AMERICAN > 60; GLUCOSE,RANDOM 102 mg/dL (75-110); POTASSIUM 3.9 MMOL/L (3.6-5.0); SODIUM 138 mmol/l (132-148)
[2017-06-11] MEDS: Enoxaparin 40 mg Syringe SC SCH (08:05)
[2017-06-11] MEDS: Pantoprazole 40 mg EC Tab PO SCH (08:06)
--- NOTE | 2017-06-11 16:43 | CP.PCM.PN ---
Subjective - Date & Time of Evaluation Date of Evaluation: 06/11/17 Time of Evaluation: 16:00 - Subjective Subjective: Pt seen and examined. Aphasic. No complaint when asked. Objective - Vital Signs/Intake and Output Vital Signs (last 24 hours): Temp Pulse Resp BP Pulse Ox 98.4 F 78 20 141/77 97 06/11/17 07:52 06/11/17 08:49 06/11/17 07:52 06/11/17 08:06 06/11/17 08:49 Intake and Output: 06/11/17 06/11/17 06:59 18:59 Intake Total 350 Output Total 450 400 Balance -100 -400 - Medications Medications: Current Medications Amlodipine Besylate (Norvasc) 5 mg PO DAILY [facility] Last Admin: 06/11/17 08:06 Dose: 5 mg Aspirin (Aspirin) 325 mg PO DAILY [facility] Last Admin: 06/11/17 08:05 Dose: 325 mg Atorvastatin Calcium (Lipitor) 80 mg PO DAILY [facility] Last Admin: 06/11/17 08:05 Dose: 80 mg Clopidogrel Bisulfate (Plavix) 75 mg PO DAILY [facility] Last Admin: 06/11/17 08:06 Dose: 75 mg Docusate Sodium (Colace) 100 mg PO BID [facility] Last Admin: 06/11/17 08:05 Dose: 100 mg Donepezil HCl (Aricept) 5 mg PO HS [facility] Last Admin: 06/10/17 21:07 Dose: 5 mg Enoxaparin Sodium (Lovenox) 40 mg SC DAILY [facility] PRN Reason: Protocol Last Admin: 06/11/17 08:05 Dose: 40 mg Lactulose (Enulose) 20 gm PO DAILY PRN PRN Reason: Constipation Last Admin: 06/06/17 08:58 Dose: 20 gm Pantoprazole Sodium (Protonix Ec Tab) 40 mg PO DAILY [facility] Last Admin: 06/11/17 08:06 Dose: 40 mg Sennosides (Senokot Tab) 8.6 mg PO HS [facility] Last Admin: 06/10/17 21:07 Dose: 8.6 mg Tamsulosin HCl (Flomax) 0.4 mg PO DAILY [facility] Last Admin: 06/11/17 08:05 Dose: 0.4 mg - Labs Labs: 06/11/17 06:48 06/11/17 06:48 - Constitutional Appears: No Acute Distress - Head Exam Head Exam: ATRAUMATIC - Eye Exam Eye Exam: absent: Scleral icterus - ENT Exam ENT Exam: Mucous Membranes Moist - Neck Exam Neck Exam: absent: Meningismus - Respiratory Exam Respiratory Exam: absent: Rhonchi, Wheezes, Respiratory Distress - Cardiovascular Exam Cardiovascular Exam: REGULAR RHYTHM, +S1, +S2 - GI/Abdominal Exam GI & Abdominal Exam: Soft. 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 1. Ischemic CVA stable and aphasic continue ASA, Plavix, statin continue BP control on Puree diet with thin liquids Continue PT/OT/speech therapy 2. HTN (hypertension) BP stable continue Norvasc 5 mg po daily 3. HLD (hyperlipidemia) Continue Lipitor 80 mg po daily 4. DVT prophylaxis Continue Lovenox 40mg SC daily
[2017-06-11 20:29] VITALS: O2SAT 96
[2017-06-12] MEDS: Enoxaparin 40 mg Syringe SC SCH (08:21)
[2017-06-12] MEDS: Pantoprazole 40 mg EC Tab PO SCH (08:22)
[2017-06-12 08:23] VITALS: BP 131/74; PULSE 65
[2017-06-12 08:34] VITALS: RESP 19; TEMP 97.5
--- NOTE | 2017-06-12 16:29 | CP.PCM.PN ---
Subjective - Date & Time of Evaluation Date of Evaluation: 06/12/17 Time of Evaluation: 16:26 - Subjective Subjective: urology. Pt seen today in recurrent retention. Currently has a folley for pvr of more than 700cc. Prostate is approx 40 gms by rectal exam. Currently on flomex. I will advise to increase to two caps daily and in 4 days remove foloey and give a repeat voiding trial. Consider cysto and further treatment if he again fails voiding trial Objective - Vital Signs/Intake and Output Vital Signs (last 24 hours): Temp Pulse Resp BP Pulse Ox 97.5 F L 65 19 131/74 96 06/12/17 08:28 06/12/17 08:28 06/12/17 08:28 06/12/17 08:28 06/12/17 08:28 Intake and Output: 06/12/17 06/12/17 06:59 18:59 Intake Total 200 Output Total 550 Balance -350 - Medications Medications: Current Medications Amlodipine Besylate (Norvasc) 5 mg PO DAILY [facility] Last Admin: 06/12/17 08:21 Dose: 5 mg Aspirin (Aspirin) 325 mg PO DAILY [facility] Last Admin: 06/12/17 08:23 Dose: 325 mg Atorvastatin Calcium (Lipitor) 80 mg PO DAILY [facility] Last Admin: 06/12/17 08:20 Dose: 80 mg Clopidogrel Bisulfate (Plavix) 75 mg PO DAILY [facility] Last Admin: 06/12/17 08:22 Dose: 75 mg Docusate Sodium (Colace) 100 mg PO BID [facility] Last Admin: 06/12/17 08:20 Dose: 100 mg Donepezil HCl (Aricept) 5 mg PO HS [facility] Last Admin: 06/11/17 21:52 Dose: 5 mg Enoxaparin Sodium (Lovenox) 40 mg SC DAILY [facility] PRN Reason: Protocol Last Admin: 06/12/17 08:21 Dose: 40 mg Lactulose (Enulose) 20 gm PO DAILY PRN PRN Reason: Constipation Last Admin: 06/12/17 15:06 Dose: 20 gm Pantoprazole Sodium (Protonix Ec Tab) 40 mg PO DAILY [facility] Last Admin: 06/12/17 08:22 Dose: 40 mg Sennosides (Senokot Tab) 8.6 mg PO [facility] Last Admin: 06/11/17 21:52 Dose: 8.6 mg Tamsulosin HCl (Flomax) 0.4 mg PO DAILY [facility] Last Admin: 06/12/17 08:20 Dose: 0.4 mg - Labs Labs: 06/11/17 06:48 06/11/17 06:48
--- NOTE | 2017-06-12 20:32 | CP.PCM.DIS ---
Provider - Provider Date of Admission: 06/01/17 21:05 Attending physician: Xander Arenas MD Consults: Dr Jaye Thomas Time Spent in preparation of Discharge (in minutes): 30 Diagnosis - Discharge Diagnosis (1) Status post CVA Status: Acute Comment: continue ASA, Plavix and statin (2) HTN (hypertension) Status: Chronic Comment: continue Norvasc 5mg PO daily (3) HLD (hyperlipidemia) Status: Chronic Comment: continue Lipitor 80mg PO daily (4) Urinary retention with incomplete bladder emptying Status: Acute Comment: follow up with Dr Thomas Hospital Course - Lab Results Lab Results: Most Recent Lab Values WBC 8.3 K/uL (4.8-10.8) 06/11/17 06:48 RBC 4.08 Mil/uL (4.40-5.90) L 06/11/17 06:48 Hgb 13.0 g/dL (12.0-18.0) 06/11/17 06:48 Hct 37.5 % (35.0-51.0) 06/11/17 06:48 MCV 91.9 fl (80.0-94.0) 06/11/17 06:48 MCH 31.8 pg (27.0-31.0) H 06/11/17 06:48 MCHC 34.6 g/dL (33.0-37.0) 06/11/17 06:48 RDW 12.9 % (11.5-14.5) 06/11/17 06:48 Plt Count 249 K/uL (130-400) 06/11/17 06:48 Sodium 138 mmol/l (132-148) 06/11/17 06:48 Potassium 3.9 MMOL/L (3.6-5.0) 06/11/17 06:48 Chloride 105 mmol/L (98-107) 06/11/17 06:48 Carbon Dioxide 24 mmol/L (22-30) 06/11/17 06:48 Anion Gap 13 (10-20) 06/11/17 06:48 BUN 18 mg/dl (9-20) 06/11/17 06:48 Creatinine 0.8 mg/dL (0.8-1.5) 06/11/17 06:48 Est GFR ( Amer) > 60 06/11/17 06:48 Est GFR (Non-Af Amer) > 60 06/11/17 06:48 Random Glucose 102 mg/dL (75-110) 06/11/17 06:48 Calcium 8.6 mg/dL (8.4-10.2) 06/11/17 06:48 Urine Color Yellow (YELLOW) 06/02/17 09:10 Urine Clarity Slighty-cloudy (Clear) 06/02/17 09:10 Urine pH 5.0 (5.0-8.0) 06/02/17 09:10 Ur Specific [place] 1.027 (1.003-1.030) 06/02/17 09:10 Urine Protein 30 mg/dL (NEGATIVE) 06/02/17 09:10 Urine Glucose (UA) Neg mg/dL (Normal) 06/02/17 09:10 Urine Ketones 20 mg/dL (NEGATIVE) 06/02/17 09:10 Urine Blood Negative (NEGATIVE) 06/02/17 09:10 Urine Nitrate Negative (NEGATIVE) 06/02/17 09:10 Urine Bilirubin Negative (NEGATIVE) 06/02/17 09:10 Urine Urobilinogen 0.2-1.0 mg/dL (0.2-1.0) 06/02/17 09:10 Ur Leukocyte Esterase Neg Ronnie/uL (Negative) 06/02/17 09:10 Urine RBC (Auto) 3 /hpf (0-3) 06/02/17 09:10 Urine Microscopic WBC 1 /hpf (0-5) 06/02/17 09:10 Ur Squamous Epith Cells < 1 /hpf (0-5) 06/02/17 09:10 - Hospital Course Hospital Course: 81 yo male with history of HTN, HLD, and 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 Pt did well and now was discharged in stable condition. Discharge Exam - Head Exam Head Exam: ATRAUMATIC - Eye Exam Eye Exam: absent: Scleral icterus - ENT Exam ENT Exam: Mucous Membranes Moist - Respiratory Exam Respiratory Exam: absent: Wheezes, Respiratory Distress - Cardiovascular Exam Cardiovascular Exam: REGULAR RHYTHM, +S1, +S2 - GI/Abdominal Exam GI & Abdominal Exam: Soft. absent: Tenderness - Rectal Exam Rectal Exam: Deferred - Neurological Exam Neurological exam: Alert, Oriented x3 - Psychiatric Exam Psychiatric exam: Normal Affect - Skin Skin Exam: Dry, Intact Discharge Plan - Discharge Medications Prescriptions: amLODIPine [Norvasc] 5 mg PO DAILY #30 tab Atorvastatin [Lipitor] 80 mg PO HS #60 tab Clopidogrel [Plavix] 75 mg PO DAILY #30 tab Donepezil HCl [Aricept] 5 mg PO HS #30 tablet Pantoprazole [Protonix EC Tab] 40 mg PO DAILY #30 ect Tamsulosin [Flomax] 0.8 mg PO DAILY #60 cap - Follow Up Plan Condition: GOOD Disposition: HOME/ ROUTINE Instructions: Aspirin (By mouth), Laxative, Stool Softeners (By mouth), Amlodipine (By mouth), Donepezil (By mouth), Atorvastatin (By mouth), Tamsulosin (By mouth), Clopidogrel (By mouth), Pantoprazole (By mouth), Aphasia (DC), Expressive Aphasia Exercises (GEN), Complete Blenderized Diet (GEN), Torres Catheter Placement and Care (DC), Ischemic Stroke (GEN), Chronic Dysphagia (GEN) Additional Instructions: Keep loop recorder site to L chest wall clean and dry. Plug in loop recorder monitor and turn on.
--- NOTE | 2017-06-12 20:43 | CP.PCM.PN ---
Subjective - Date & Time of Evaluation Date of Evaluation: 06/12/17 Time of Evaluation: 12:00 - Subjective Subjective: No acute complaints at present Objective - Vital Signs/Intake and Output Vital Signs (last 24 hours): Temp Pulse Resp BP Pulse Ox 97.5 F L 65 19 131/74 96 06/12/17 08:28 06/12/17 08:28 06/12/17 08:28 06/12/17 08:28 06/12/17 08:28 Intake and Output: 06/12/17 06/13/17 18:59 06:59 Intake Total 1200 Output Total 1000 Balance 200 - Medications Medications: Current Medications Amlodipine Besylate (Norvasc) 5 mg PO DAILY [facility] Last Admin: 06/12/17 08:21 Dose: 5 mg Aspirin (Aspirin) 325 mg PO DAILY [facility] Last Admin: 06/12/17 08:23 Dose: 325 mg Atorvastatin Calcium (Lipitor) 80 mg PO DAILY [facility] Last Admin: 06/12/17 08:20 Dose: 80 mg Clopidogrel Bisulfate (Plavix) 75 mg PO DAILY [facility] Last Admin: 06/12/17 08:22 Dose: 75 mg Docusate Sodium (Colace) 100 mg PO BID [facility] Last Admin: 06/12/17 17:04 Dose: 100 mg Donepezil HCl (Aricept) 5 mg PO HS [facility] Last Admin: 06/11/17 21:52 Dose: 5 mg Enoxaparin Sodium (Lovenox) 40 mg SC DAILY [facility] PRN Reason: Protocol Last Admin: 06/12/17 08:21 Dose: 40 mg Lactulose (Enulose) 20 gm PO DAILY PRN PRN Reason: Constipation Last Admin: 06/12/17 15:06 Dose: 20 gm Pantoprazole Sodium (Protonix Ec Tab) 40 mg PO DAILY [facility] Last Admin: 06/12/17 08:22 Dose: 40 mg Sennosides (Senokot Tab) 8.6 mg PO HS [facility] Last Admin: 06/11/17 21:52 Dose: 8.6 mg Tamsulosin HCl (Flomax) 0.8 mg PO DAILY [facility] - Labs Labs: 06/11/17 06:48 06/11/17 06:48 - Head Exam Head Exam: ATRAUMATIC, NORMAL INSPECTION, NORMOCEPHALIC - Eye Exam Eye Exam: EOMI, Normal appearance Pupil Exam: NORMAL ACCOMODATION, PERRL - ENT Exam ENT Exam: Mucous Membranes Moist - Neck Exam Neck Exam: Normal Inspection - Respiratory Exam Respiratory Exam: Clear to Ausculation Bilateral - Cardiovascular Exam Cardiovascular Exam: REGULAR RHYTHM - GI/Abdominal Exam GI & Abdominal Exam: Normal Bowel Sounds - Rectal Exam Rectal Exam: NORMAL INSPECTION - Exam External exam: NORMAL EXTERNAL EXAM - Extremities Exam Extremities Exam: Full ROM, Normal Inspection - Back Exam Back Exam: NORMAL INSPECTION - Neurological Exam Neurological Exam: Alert, Awake Neuro motor strength exam: Left Upper Extremity: 3, Right Upper Extremity: 3, Left Lower Extremity: 3, Right Lower Extremity: 3 - Psychiatric Exam Psychiatric exam: Normal Affect - Skin Skin Exam: Normal Color Assessment and Plan (1) DVT prophylaxis Status: Acute (2) Status post CVA Assessment & Plan: plan for team conference , foleys due to retention, discussed with peer to peer review to try to extend Dc date as roc still has Ot, Pt and speech needs Status: Acute (3) Urinary retention with incomplete bladder emptying Status: Acute (4) HLD (hyperlipidemia) Status: Chronic (5) HTN (hypertension) Status: Chronic
== END 2017-06-12 20:10 | disposition home health service (06) | DRG 57 ==
PROVIDERS: ADMIT Internal Medicine; ATTEND Internal Medicine
PROC: F07Z9FZ Gait Training/Functional Ambulation Treatment using Assistive, Adaptive, Supportive or Protective Equipment (ICD-10-PCS; principal; 2017-06-02)
PROC: F08Z4ZZ Home Management Treatment (ICD-10-PCS; 2017-06-02)
PROC: F06Z3ZZ Aphasia Treatment (ICD-10-PCS; 2017-06-04)
DX: I69.351 Hemiplegia and hemiparesis following cerebral infarction affecting right dominant side (principal); I69.320 Aphasia following cerebral infarction; R13.10 Dysphagia, unspecified; I10 Essential (primary) hypertension; E78.00 Pure hypercholesterolemia, unspecified; R33.9 Retention of urine, unspecified; K59.00 Constipation, unspecified; Z79.899 Other long term (current) drug therapy